=== PATIENT | male | born 1945 | race Caucasian/White ===

== ENCOUNTER 2020-09-20 06:41 | Day surgery (SDC) | payer OTHER, SELFPAY ==
[2020-09-01 08:45] VITALS: BMI 27.9
--- NOTE | 2020-09-20 | COLBX_PTH ---
PATIENT: AFSHAN HERMOSILLO LOC: EN U#:[id number] AGE/SX: 75/M ROOM: RE09/20/[address]: Dr. Winston Irizarry MD : 1945 BED: DIS: 09/20/2020 SPEC #: [id number] RECD: 09/20/20 11:32 STATUS: JOSIANE NASCIMENTO #: [id number] EZE: 09/20/20 00:[address]: Winston Irizarry DEPT: SURGICAL PATHOLOGY RECD BY: Jason Darnell Tissues: A - Descending colon B - Sigmoid colon biopsy C - Sigmoid colon biopsy D - Sigmoid colon biopsy E - Rectum, NOS Procedures: Surgery Specimen Level IV HEADER OPERATION: Colonoscopy (MAC) PRE-OP DIAGNOSIS: Screening TISSUE SUBMITTED: A - Polyp descending colon, B - Polyp proximal sigmoid colon, C - Polyp mid sigmoid colon, D - Polyps x3 distal sigmoid colon, E - Polyp rectosigmoid colon MICROSCOPIC DIAGNOSIS A. Polyp descending colon, biopsy: Hyperplastic polyp. B. Polyp proximal sigmoid colon, biopsy: Tubular adenoma. C. Polyp mid sigmoid colon, biopsy: Hyperplastic polyp. D. Polyp x3 distal sigmoid colon, biopsy: Fragments of hyperplastic polyp. E. Polyp rectosigmoid colon, biopsy: Fragments of hyperplastic polyp. SJ:farzana 09/21/2020 MICROSCOPIC DESCRIPTION Slides are reviewed. GROSS DESCRIPTION A - Received in fixative is one container labeled with the patient's name and designated polyp descending colon. The specimen consists of a hummel-pink polyp measuring 0.5 x 0.5 x 0.3 cm. The specimen is totally submitted in one cassette. B - Received in fixative is one container labeled with the patient's name and designated proximal sigmoid colon polyp. The specimen consists of a hummel-pink polyp measuring 0.4 x 0.4 x 0.3 cm. The specimen is totally submitted in one cassette. C - Received in fixative is one container labeled with the patient's name and designated polyp mid sigmoid colon. The specimen consists of a hummel-pink polyp measuring 0.4 x 0.4 x 0.3 cm. The specimen is totally submitted in one cassette. D - Received in fixative is one container labeled with the patient's name and designated polyp distal sigmoid. The specimen consists of multiple irregular fragments of light hummel soft tissue that in aggregate measure 1 x 0.4 x 0.2 cm. The specimen is totally submitted in one cassette. E - Received in fixative is one container labeled with the patient's name and designated polyp rectosigmoid colon. The specimen consists of multiple irregular fragments of light hummel soft tissue that in aggregate measure 0.4 x 0.4 x 0.1 cm. The specimen is totally submitted in one cassette. / CHRISTINA:farzana 09/20/20 TC:1 CPT: 68584 x5
[2020-09-20 07:03] VITALS: BP 133/88; PULSE 84; RESP 16; TEMP 37.1; O2SAT 99; BMI 27.2
--- NOTE | 2020-09-20 07:05 | PCM.HP.BLA ---
Problem List (1) Screening for malignant neoplasm of intestine Status: Acute History and Physical Date of Admission: 09/20/20 Intake Visit Reasons: CSCOPE Allergies No Known Allergies Allergy (Verified 09/01/20 08:46) Medications diclofenac sodium 75 mg tablet,delayed release 75 mg PO BID 09/01/20 [History Confirmed 09/01/20] enalapril maleate 10 mg tablet 10 mg PO DAILY 09/01/20 [History Confirmed 09/01/20] hydrochlorothiazide 25 mg tablet 25 mg PO QAM 09/01/20 [History Confirmed 09/01/20] [facility] Medical History (Updated 09/01/20 @ 08:[address] Winston Irizarry MD) Screening for malignant neoplasm of intestine (Acute) Cervical spondylosis (Acute) History of alcohol dependence (Acute) History of prostate cancer (Acute) Hypercholesteremia (Acute) Lumbar radiculopathy (Acute) Lumbar spinal stenosis (Acute) Osteoarthritis (Acute) Retinal vein occlusion (Acute) Spinal stenosis (Acute) Vertigo (Acute) HTN (hypertension) (Chronic) Surgical History (Updated 09/01/20 @ 08:44 by Marah Romero) History of foot surgery (Acute) History of prostate biopsy (Acute) Family History (Updated 09/01/20 @ 08:45 by Marah Romero) Brother Cancer prostate Father Hypertension Mother Pancreatitis Social History (Updated 09/01/20 @ 08:[address] Winston Irizarry MD) Smoking Status: Former smoker alcohol intake: former HPI HPI HPI: AFSHAN HERMOSILLO, is a 75 M who presents to the office today for surgical consultation for screening colonoscopy. The patient is referred by the [facility] and a written copy my surgical consult recommendations will return to them. The patient apparently recently has been diagnosed with prostate cancer. He has never had a colonoscopy. It is being recommended that he have a colonoscopy to help decipher his treatment for his prostate CA. He denies myocardial infarction or CVA or diabetes or COPD or DVT. He does exercise routinely to keep his core strength. He has had no weight change. No change of bowel habits no bright red blood per rectum or melena. Family history is negative for colon cancer. An older brother did have prostate cancer as well. The patient used to smoke chew and drink. He is a recovered alcoholic. HPI HPI HPI: AFSHAN HERMOSILLO, is a 75 M who presents to the office today for Exam Const General: cooperative, comfortable, no acute distress Orientation: alert, awake HENMT Head: normal to inspection Chest Chest palpation & inspection: normal inspection of the chest Resp Effort & Inspection: normal respiratory effort Auscultation: clear to auscultation bilaterally Cardio Rate: regular rate Rhythm: regular rhythm GI Palpation: soft, no hepatosplenomegaly Auscultation: normal bowel sounds Skin General: no rashes or lesions noted Neuro Cognition: normal cognition Extrem General: no calf tenderness Psych Thought Content: normal Assessment & Plan Problems 1. Screening for malignant neoplasm of intestine Z12.10 Plan 75-year-old gentleman. He presents in referral from the [facility] for screening colonoscopy. He carries a newer diagnosis of prostate cancer and a screening exam was strongly recommended. He already has bowel prep instructions. I have discussed with him the technique, benefit, risk, alternatives. He has had an opportunity to ask and have questions answered. Because of his recovery alcoholic status I anticipate using monitored anesthesia care is that propofol can be utilized. I appreciate the opportunity of assisting with his surgical care in the referral. We will schedule and proceed at the patient discretion. [place] [facility] [place]rizar[place] M.D., F.A.C.S. Orders Orders: Colonoscopy Today Coding Level of Care Code 03318 Diagnoses Screening for malignant neoplasm of intestine Z12.10 I have re-examined the patient. There are no clinical changes since date of exam. Procedure Criteria Procedure Type: Elective COVID Risk Discussion: The surgeon/proceduralist and patient have discussed in detail the risk of exposure to and/or potential harm posed by the COVID-19 virus with having a surgery/procedure at this time versus the risk of delaying the surgery/procedure. It is not possible to know either the risk of delaying the surgery or procedure or chance of getting an infection with perfect accuracy, but a joint decision was made between the patient and the surgeon/proceduralist to proceed at this time with the scheduled surgery/procedure as indicated on the consent form.
[2020-09-20] MEDS: Lactated Ringers 1,000 ML 100 ML IV (07:14)
[2020-09-20 09:00] VITALS: BP 133/88; BP 97/67; PULSE 59; RESP 16; TEMP 36.2; O2SAT 97
--- NOTE | 2020-09-20 09:04 | OP.CCLET_ITS ---
09/20/2020 Lady Garcia Re : Colonoscopy procedure for Calderon Garcia This procedure was performed on Sunday, September 20, 2020. My impressions and recommendations are as follows: Impressions : - Non-thrombosed external hemorrhoids, non-thrombosed internal hemorrhoids, internal hemorrhoids that prolapse with straining, but spontaneously regress to the resting position (Grade II) and enlarged prostate found on digital rectal exam. - Diverticulosis in the sigmoid colon and in the descending colon. - One 7 mm polyp in the descending colon, removed with a hot snare. Resected and retrieved. - One 6 mm polyp in the proximal sigmoid colon, removed with a hot snare. Resected and retrieved. Clip was placed. - One 7 mm polyp in the mid sigmoid colon, removed with a hot snare. Resected and retrieved. Clip was placed. - Three polyps in the distal sigmoid colon, removed with a hot snare. Resected and retrieved. - One 5 mm polyp at the recto-sigmoid colon, removed with a cold biopsy forceps. Resected and retrieved. Recommendations : - Repeat colonoscopy in 1 year for surveillance. - Telephone my office for pathology results in 1 week. - Continue present medications. My findings are described in the full procedure note, which is enclosed. If I can be of further assistance, please feel free to contact me at Doctor phone number(s): Work: . Sincerely, Winston Irizarry MD 09/20/2020 9:04:18 AM This report has been signed electronically.
--- NOTE | 2020-09-20 09:04 | OP.COLON_ITS ---
Patient Name: Calderon Kong Procedure Date: 09/20/2020 8:16 AM Date of : 1945 Age: 75 Procedure: Colonoscopy Indications: Screening for colorectal malignant neoplasm Providers: Winston Irizarry MD Referring MD: Lady Garcia Medicines: See the Anesthesia note for documentation of the administered medications Patient Profile: Last Colonoscopy: none. The patient's first colonoscopy is today. Complications: No immediate complications. Procedure: Pre-Anesthesia Assessment: - Prior to the procedure, a History and Physical was performed, and patient medications and allergies were reviewed. The patient's tolerance of previous anesthesia was also reviewed. The risks and benefits of the procedure and the sedation options and risks were discussed with the patient. All questions were answered, and informed consent was obtained. Prior Anticoagulants: The patient has taken no previous anticoagulant or antiplatelet agents. ASA Grade Assessment: II - A patient with mild systemic disease. After reviewing the risks and benefits, the patient was deemed in satisfactory condition to undergo the procedure. After I obtained informed consent, the scope was passed under direct vision. Throughout the procedure, the patient's blood pressure, pulse, and oxygen saturations were monitored continuously. The colonoscope was introduced through the anus and advanced to the cecum, identified by appendiceal orifice and ileocecal valve. The colonoscopy was performed without difficulty. The patient tolerated the procedure well. The quality of the bowel preparation was good. The ileocecal valve and the appendiceal orifice were photographed. Scope In: 8:22:01 AM Scope Withdrawal Time 0 hours 27 minutes 32 seconds Scope Out: 8:54:49 AM Total Procedure Duration Time 0 hours 32 minutes 48 seconds Findings: The digital rectal exam findings include non-thrombosed external hemorrhoids, non-thrombosed internal hemorrhoids, internal hemorrhoids that prolapse with straining, but spontaneously regress to the resting position (Grade II) and enlarged prostate. Multiple diverticula were found in the sigmoid colon and descending colon. A 7 mm polyp was found in the descending colon. The polyp was sessile. The polyp was removed with a hot snare. Resection and retrieval were complete. A 6 mm polyp was found in the proximal sigmoid colon. The polyp was sessile. The polyp was removed with a hot snare. Resection and retrieval were complete. To prevent bleeding post-intervention, one hemostatic clip was successfully placed. There was no bleeding at the end of the procedure. A 7 mm polyp was found in the mid sigmoid colon. The polyp was sessile. The polyp was removed with a hot snare. Resection and retrieval were complete. To prevent bleeding post-intervention, one hemostatic clip was successfully placed. There was no bleeding at the end of the procedure. Three sessile polyps were found in the distal sigmoid colon. These polyps were removed with a hot snare. Resection and retrieval were complete. A 5 mm polyp was found in the recto-sigmoid colon. The polyp was sessile. The polyp was removed with a cold biopsy forceps. Resection and retrieval were complete. Impression: - Non-thrombosed external hemorrhoids, non-thrombosed internal hemorrhoids, internal hemorrhoids that prolapse with straining, but spontaneously regress to the resting position (Grade II) and enlarged prostate found on digital rectal exam. - Diverticulosis in the sigmoid colon and in the descending colon. - One 7 mm polyp in the descending colon, removed with a hot snare. Resected and retrieved. - One 6 mm polyp in the proximal sigmoid colon, removed with a hot snare. Resected and retrieved. Clip was placed. - One 7 mm polyp in the mid sigmoid colon, removed with a hot snare. Resected and retrieved. Clip was placed. - Three polyps in the distal sigmoid colon, removed with a hot snare. Resected and retrieved. - One 5 mm polyp at the recto-sigmoid colon, removed with a cold biopsy forceps. Resected and retrieved. Recommendation: - Repeat colonoscopy in 1 year for surveillance. - Telephone my office for pathology results in 1 week. - Continue present medications. Procedure Code(s): --- Professional --- 58824, Colonoscopy, flexible; with removal of tumor(s), polyp(s), or other lesion(s) by snare technique 92566, 59, Colonoscopy, flexible; with biopsy, single or multiple Diagnosis Code(s): --- Professional --- Z12.11, Encounter for screening for malignant neoplasm of colon K64.1, Second degree hemorrhoids K64.4, Residual hemorrhoidal skin tags D12.4, Benign neoplasm of descending colon D12.5, Benign neoplasm of sigmoid colon D12.7, Benign neoplasm of rectosigmoid junction N40.0, Benign prostatic hyperplasia without lower urinary tract symptoms K57.30, Diverticulosis of large intestine without perforation or abscess without bleeding CPT copyright 2017 [employer]. All rights reserved. The codes documented in this report are preliminary and upon guide cruise review may be revised to meet current compliance requirements. Winston Irizarry MD 09/20/2020 9:04:18 AM This report has been signed electronically. Number of Addenda: 0 Note Initiated On: 09/20/2020 8:16 AM
[2020-09-20 09:05] VITALS: BP 101/62; BP 133/88; PULSE 58; RESP 16; O2SAT 97
[2020-09-20 09:13] VITALS: BP 114/72; BP 133/88; PULSE 63; RESP 16; O2SAT 98
[2020-09-20 09:15] VITALS: BP 115/68; BP 133/88; PULSE 55; RESP 16; TEMP 36.8; O2SAT 99
[2020-09-20 09:40] VITALS: BP 133/88
== END 2020-09-20 09:50 | disposition home or self-care (01) ==
LOC: EN 06:42 → AC 06:42
PROVIDERS: Visit Provider Surgery
PROC: 0DJD8ZZ Inspection of Lower Intestinal Tract, Via Natural or Artificial Opening Endoscopic (ICD-10-PCS; CPT 45378; principal; 2020-09-20 07:55)
DX: Z12.11 Encounter for screening for malignant neoplasm of colon (principal); D12.5 Benign neoplasm of sigmoid colon; K63.5 Polyp of colon; K57.30 Diverticulosis of large intestine without perforation or abscess without bleeding; K64.1 Second degree hemorrhoids; K64.4 Residual hemorrhoidal skin tags; N40.0 Benign prostatic hyperplasia without lower urinary tract symptoms; Z20.828 Contact with and (suspected) exposure to other viral communicable diseases; I10 Essential (primary) hypertension; E78.00 Pure hypercholesterolemia, unspecified; M19.90 Unspecified osteoarthritis, unspecified site; Z85.46 Personal history of malignant neoplasm of prostate; Z79.899 Other long term (current) drug therapy; Z87.891 Personal history of nicotine dependence
CPT/HCPCS: 45380; 45385; 87426; 88305; C9803; J7120; J2405

== ENCOUNTER 2020-11-16 05:14 | Day surgery (SDC) | payer OTHER, SELFPAY ==
[2020-11-16 05:56] VITALS: BP 143/73; PULSE 69; RESP 16; TEMP 36.1; O2SAT 97; BMI 28.3
[2020-11-16] MEDS: Lactated Ringers 1,000 ML 100 ML IV (06:03)
[2020-11-16] MEDS: Ciprofloxacin 400 MG/200 ML BAG 200 MG IV (07:25)
--- NOTE | 2020-11-16 07:28 | PCM.HP.STD ---
HPI - General General Date of Admission: 09/20/20 HPI Narrative AFSHAN HERMOSILLO, is a 75 M who presents for placement of gold markers and spacer gel for radiation therapy. [facility] Medical History (Updated 11/16/20 @ 07:[address] Gaurva Ureña MD) Cervical spondylosis History of alcohol dependence History of prostate cancer HTN (hypertension) Hypercholesteremia Lumbar radiculopathy Lumbar spinal stenosis Osteoarthritis Retinal vein occlusion Screening for malignant neoplasm of intestine Spinal stenosis Vertigo Home Medications diclofenac sodium 75 mg tablet,delayed release 75 mg PO BID PRN 09/01/20 [History Last Taken 09/19/20] enalapril maleate 10 mg tablet 10 mg PO DAILY 09/01/20 [History Last Taken 09/20/20] hydrochlorothiazide 25 mg tablet 25 mg PO QAM 09/01/20 [History Last Taken 09/19/20] Hemp Oil 1 ml PO BID 09/12/20 [History Last Taken 09/19/20] Allergy/AdvReac Type Severity Reaction Status Date / Time gabapentin AdvReac patient Verified 11/16/20 05:34 was over medicated meloxicam [From Mobic] AdvReac does not Verified 11/16/20 05:34 work Family History (Updated 09/01/20 @ 08:45 by Marah Romero) Brother Cancer prostate Father Hypertension Mother Pancreatitis Surgical History (Updated 09/20/20 @ 07:[address] Winston Irizarry MD) History of foot surgery History of prostate biopsy Social History (Updated 09/01/20 @ 08:[address] Winston Irizarry MD) Smoking Status: Former smoker alcohol intake: former ROS Constitutional Constitutional: Denies chills, fever(s) or malaise Eyes Eyes: Denies blurry vision or change in vision ENT HEENT: Reports none Cardiovascular Cardiovascular: Denies chest pain or palpitations Respiratory/Chest Respiratory/Chest: Denies cough or shortness of breath with exertion Gastrointestinal Gastrointestinal: Denies abdominal pain, constipation or diarrhea Musculoskeletal Musculoskeletal: Denies back pain, joint stiffness or joint swelling Integumentary Integumentary: Denies dry skin, jaundice, lesions or rash Neurologic Neurologic: Denies confusion, syncope or weakness Psychiatric Psychiatric: Reports none; Denies anxiety or depression Endocrine Endocrinology: Denies excessive sweating, fatigue or flushing Hematologic/Lymphatic Hematologic/Lymphatic: Denies anemia, easy bleeding or easy bruising Vital Signs Vital Signs Vital Signs: 11/16/20 05:56 Temperature 97.0 F L Temperature Source Temporal Pulse Rate 69 Respiratory Rate 16 Respiratory Pattern Normal Blood Pressure 143/73 H Blood Pressure Mean 96 Blood Pressure Source Monitor Blood Pressure Position Semi-Fowlers Blood Pressure Location Right Arm Pulse Ox 97 Oxygen Delivery Method Room Air Physical Exam Const alert and oriented x3 General Appearance: cooperative HEENT normocephalic, head/scalp atraumatic, EAC's normal and TM's normal bilaterally Eyes PERRL and EOMs intact bilaterally Pupil: sluggish Neck no lymphadenopathy, supple and no JVD General: trachea midline Lymph Lymphatic: no lymphadenopathy noted, lymphedema and lymphadenopathy Resp normal respiratory effort, normal air movement and clear to auscultation bilaterally Cardio regular rate, regular rhythm and peripheral pulses 2+ throughout GI soft to palpation, non-tender and non-distended Extremity normal capillary refill and no clubbing, cyanosis or edema General Extremity: no tenderness to palpation of joints or extremities Skin no rashes or lesions noted General Skin Exam: turgor normal Lesions: no lesions Rashes: no rashes Neuro CN's II-XII intact bilaterally Speech: speech normal Motor Exam: strength 5/5 throughout; Negative for general weakness Psych thought process normal, cooperative and affect normal Appearance: appropriate Lab / Micro Data Micro: Microbiology 11/15/20 08:30 SARS-CoV-2 Antigen (Rapid) - Final Interface Orders Assessment & Plan Assessment/Plan (1) Prostate cancer: Status: Acute Code(s): C61 - Malignant neoplasm of prostate Plan: plan to proceed with placement of gold markers and spacer gel.
--- NOTE | 2020-11-16 07:30 | PCM.DC ---
Discharge Instructions Outpatient Procedure Reason For Visit: SPACE OAR, GOLD MARKERS Follow Up Care Test Results: Test results from this visit will be discussed in further detail at your follow-up appointment, if applicable. Discharge Plan Admission Primary Reason for Your Visit: placement of gold markers Attending Provider: Gaurav Ureña Discharge Orders/Prescriptions Prescriptions: New ciprofloxacin HCl [Cipro] 500 mg tablet 500 mg PO BID Qty: 14 RF: 0 No Action diclofenac sodium 75 mg tablet,delayed release (DR/EC) 75 mg PO BID PRN (Reason: inflamation) RF: 0 enalapril maleate 10 mg tablet 10 mg PO DAILY RF: 0 hydrochlorothiazide 25 mg tablet 25 mg PO QAM RF: 0 Hemp Oil 1 ml PO BID RF: 0 Referrals: RITESH CAZARES [Other] Disposition Discharge Orders: Discharge Patient (Routine); Ordered 11/16/20 Ordered By: Dr. Gaurav Ureña
--- NOTE | 2020-11-16 07:39 | PCM.OPRPT ---
Problems Associated Problem List Diagnoses (1) Prostate cancer: Report of Operation Date of Procedure: 11/16/20 Pre-Operative Diagnosis: Prostate cancer Post-Operative Diagnosis: same Surgery/Procedure Performed:: placement of gold markers and spacer gel OAR gel matrix Description of Surgical Findings:: Patient was taken back to the operating room after smooth induction of anesthesia he was placed supine on the table. The genitals and perineum were prepped and draped in usual sterile fashion. I then introduced a biplanar ultrasound probe into the rectum and performed ultrasonography and identified the Denonvilliers' fascia the prostate mid base and apex and seminal vesicles. The spacer gel mix was then prepared on the back table per manufactures instruction. Under ultrasound guidance in the midline perineum a bevel needle down we advanced through the perineum below the prostate into the space of Denonvilliers' fascia. This space which could be identified by ultrasound with a bright white layer between the prostate and the rectum. I then injected a puff of normal saline to identify the space further. After I confirmed that the needle was in the correct space in the mid prostate and the space of Denonvilliers' fascia between the rectum and the prostate. Then over the course of 15 seconds the gel matrix was injected slowly there was nice separation between the prostate and the rectum at the gel matrix was injected. The position of the gel matrix was confirmed by ultrasound. I then introduced a biplanar ultrasound probe into the rectum and performed ultrasonography on the prostate. The prostate seminal vesicles, the base, the mid prostate, the apex were identified. The Denonvilliers' fascia was also identified. I first advanced the first marker in the patient's right side to the mid prostate and deployed the first steward/stewardess third class. The second steward/stewardess third class was then advanced under ultrasound guidance to the patient's left mid prostate . And finally the third steward/stewardess third class was advanced of the prostate left apex and deployed under ultrasound guidance. All 3 markers were confirmed to be present within the prostate on ultrasonography. Then the injection needle was removed intact. Patient's perineum was cleaned patient was taken out of stirrups and then taken back to the PACU in good condition. Anesthesiologist: Jamison Spivey Specimen's removed: none Drains: none Admit VTE Documentation VTE Present on Admission: No VTE Mechan Device Prophylaxis: SCD's
[2020-11-16 08:06] VITALS: BP 112/68; BP 143/73; PULSE 91; RESP 18; TEMP 36.4; O2SAT 100
[2020-11-16 08:15] VITALS: BP 112/62; BP 143/73; PULSE 103; RESP 18; O2SAT 95
[2020-11-16 08:30] VITALS: BP 125/75; BP 143/73; PULSE 95; RESP 18; O2SAT 98
[2020-11-16 08:35] VITALS: BP 120/81; BP 143/73; PULSE 92; RESP 18; TEMP 36.8; O2SAT 97
[2020-11-16 09:47] VITALS: BP 143/73; BP 146/84; PULSE 86; RESP 18; TEMP 36.6; O2SAT 99
== END 2020-11-16 09:49 ==
LOC: SDC 05:15 → AC 05:32
PROVIDERS: Referring Provider Urology; Visit Provider Urology
PROC: (CPT 55874; principal; 2020-11-16 07:20)
DX: C61 Malignant neoplasm of prostate (principal); Z20.822 Contact with and (suspected) exposure to COVID-19; I10 Essential (primary) hypertension; M48.061 Spinal stenosis, lumbar region without neurogenic claudication; M54.16 Radiculopathy, lumbar region; M47.812 Spondylosis without myelopathy or radiculopathy, cervical region; M19.90 Unspecified osteoarthritis, unspecified site; H34.8192 Central retinal vein occlusion, unspecified eye, stable; Z79.899 Other long term (current) drug therapy; Z87.891 Personal history of nicotine dependence
CPT/HCPCS: 55875; 55876; 87426; C9803; J7120; J0744; J2405

== ENCOUNTER → 2020-12-01 13:01 | Outpatient (CLI) | payer OTHER, SELFPAY ==
[2020-11-16 05:56] VITALS: BMI 28.3
[2020-12-01 15:14] LABS: Absolute Lymphocyte Count 1.64 X10^3/uL (0.83-4.51); Basophil# 0.04 X10^3/uL; Basophil% 0.6 % (0-1); Eosinophil# 0.19 X10^3/uL; Eosinophils% 2.9 % (0-5); Hematocrit 42.5 % (40-54); Hemoglobin 13.7 g/dL (13.0-16.5); Lymphocyte # 1.64 X10^3/ul (0.83-4.51); Lymphocyte % 25.2 % (19-41); Mean Corp Hgb Conc 32.2 g/dL (32-36); Mean Corpuscular Hgb 28.8 pg (27.0-32.0); Mean Corpuscular Volume 89.5 fL (80-94); Mean Platelet Vol. 9.3 fl (6.2-12.0); Monocyte# 0.59 X10^3/uL; Monocyte% 9.1 % (0-10); NRBC Flagged by Analyzer 0 % (0-5); Neutrophil # 4.03 X10^3/uL (2.7-7.7); Neutrophil % 61.9 % (47-70); Platelet Count 307 K/mm3 (150-450); RBC Distribution Width CV 12.8 % (11.6-14.6); Red Blood Count 4.75 M/mm3 (4.6-6.2); White Blood Count 6.5 K/mm3 (4.4-11.0)
[2020-12-01 15:28] LABS: Creatinine, Serum 1.12 mg/dL (0.70-1.30); EST Glomerular Filtration Rate 68 mL/min (>60); Est Glom Filt Rate - Afr Amer 82 mL/min (>60); PSA,Total- Diagnostic 2.46 ng/mL (0.0-4.0)
== END ==
PROVIDERS: Referring Provider Radiology Radiation Oncology; Visit Provider Radiology Radiation Oncology
DX: Z01.818 Encounter for other preprocedural examination (principal); C61 Malignant neoplasm of prostate
CPT/HCPCS: 36415; 82565; 84153; 85025

== ENCOUNTER → 2020-12-02 12:43 | Outpatient (CLI) | payer OTHER, SELFPAY ==
[2020-11-16 05:56] VITALS: BMI 28.3
--- NOTE | 2020-12-02 13:09 | CT_ITS ---
STUDY: CT PELVIS WITH CONTRAST REASON FOR EXAM: Male, 75 years old. PROSTATE CA. Staging examination. RADIATION DOSAGE (If Supplied By Facility): CTDIvol = ( 19.04 ) mGy, DLP = ( 523.55 ) mGycm TECHNIQUE: Transaxial imaging of the pelvis was performed without oral contrast. IV 100ML ISOVUE 300 was administered intravenously. Individualized dose optimization techniques were used for this CT. COMPARISON: None. FINDINGS: Normal urinary bladder. The prostate is enlarged. It measures 4.7 cm x 5.1 cm. Radiation seeds are seen within. The prostate causes indentation at the bladder base. Normal visualized small intestine. There are multiple colonic diverticula of the sigmoid colon consistent with chronic diverticulosis. There is no pelvic fluid. There is no pelvic lymphadenopathy or mass lesion. There is diffuse atherosclerotic calcification of the pelvic arteries. Small umbilical hernia containing fat. There are diffuse degenerative changes of the visualized lumbar spine. Degenerative changes of the sacroiliac joints bilaterally. CT/CT Pelvis W/CONT Therapy IMPRESSION: Prostatic enlargement. Radiation seeds are seen within the prostate. There is indentation on the bladder base due to the prostatic enlargement. Electronically Signed: Bill Claudio MD at 13:45 EDT , Service support ,
== END ==
PROVIDERS: Referring Provider Radiology Radiation Oncology; Visit Provider Radiology Radiation Oncology
DX: C61 Malignant neoplasm of prostate (principal)
CPT/HCPCS: 51600; 72193; Q9965; Q9967

== ENCOUNTER → 2020-12-30 13:28 | Outpatient (CLI) | payer OTHER, SELFPAY ==
[2020-12-30 15:38] LABS: Absolute Lymphocyte Count 0.91 X10^3/uL (0.83-4.51); Absolute Neutrophil Count 4.9 X10^3/uL (2.0-7.7); Basophil# 0.02 X10^3/uL; Basophil% 0.3 % (0-1); Eosinophil# 0.17 X10^3/uL; Eosinophils% 2.6 % (0-5); Hematocrit 39.7 % (40-54); Hemoglobin 13.3 g/dL (13.0-16.5); Lymphocyte # 0.91 X10^3/ul (0.83-4.51); Lymphocyte % 13.7 % (19-41); Mean Corp Hgb Conc 33.5 g/dL (32-36); Mean Corpuscular Hgb 29.8 pg (27.0-32.0); Mean Platelet Vol. 9.1 fl (6.2-12.0); NRBC Flagged by Analyzer 0 % (0-5); Neutrophil # 4.94 X10^3/uL (2.7-7.7); Neutrophil % 74.2 % (47-70); Platelet Count 267 K/mm3 (150-450); RBC Distribution Width CV 12.8 % (11.6-14.6); RBC Distribution Width SD 41.6 fl (35.1-43.9); Red Blood Count 4.46 M/mm3 (4.6-6.2); White Blood Count 6.7 K/mm3 (4.4-11.0)
== END ==
PROVIDERS: Referring Provider Radiology Radiation Oncology; Visit Provider Radiology Radiation Oncology
DX: C61 Malignant neoplasm of prostate (principal)
CPT/HCPCS: 36415; 85025

== ENCOUNTER 2025-01-19 08:36 | Emergency (ER) | payer OTHER, SELFPAY ==
[2025-01-19 08:37] VITALS: BP 167/57; PULSE 70; RESP 18; TEMP 36.9; O2SAT 99; BMI 27.2
--- NOTE | 2025-01-19 08:43 | EKG12_ITS ---
Test Reason : CHEST PAIN Blood Pressure : */* mmHG Vent. Rate : 63 BPM Atrial Rate : 63 BPM P-R Int : 248 ms QRS Dur : 108 ms QT Int : 418 ms P-R-T Axes : 85 6 2 degrees QTcB Int : 427 ms Sinus rhythm with sinus arrhythmia with 1st degree A-V block Inferior infarct , age undetermined Abnormal ECG Confirmed by FAREED LIMON, DECLAN ([id number]), editor newspaper ZION HERRERA ([id number]) on 01/20/2025 1:40:18 PM Referred By: Confirmed By: DECLAN GUERRIER MD
[2025-01-19 08:45] VITALS: TEMP 36.9; O2SAT 100
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
[2025-01-19 09:35] VITALS: BP 154/115; PULSE 67; RESP 16; O2SAT 100
[2025-01-19 10:21] VITALS: BP 149/97; PULSE 70; RESP 17; O2SAT 98
[2025-01-19 10:29] VITALS: BP 149/97; PULSE 70; RESP 17; TEMP 36.6; O2SAT 98
== END 2025-01-19 10:34 | disposition home or self-care (01) ==
PROVIDERS: Emergency Provider Emergency Medicine; Visit Provider Emergency Medicine
DX: S20.212A Contusion of left front wall of thorax, initial encounter (principal); F10.21 Alcohol dependence, in remission; S81.802A Unspecified open wound, left lower leg, initial encounter; V49.40XA Driver injured in collision with unspecified motor vehicles in traffic accident, initial encounter; Y92.410 Unspecified street and highway as the place of occurrence of the external cause; Z23 Encounter for immunization; I10 Essential (primary) hypertension; E78.00 Pure hypercholesterolemia, unspecified; Z79.899 Other long term (current) drug therapy; Z87.891 Personal history of nicotine dependence
CPT/HCPCS: 71250; 73590; 90471; 90715; 93005; 99283